=== PATIENT | female | born 1950 | race Hispanic/Latino ===

== ENCOUNTER 2018-03-07 06:41 | Day surgery (SDC) | payer MEDICARE, OTHER ==
[2018-02-26 09:39] VITALS: BMI 41.5
[2018-03-07] MEDS ORDERED: Sodium Chloride 0.9% 1,000 ML IV SCH (08:30)
[2018-03-07 08:47] VITALS: O2SAT 100
[2018-03-07 08:59] VITALS: PULSE 58
[2018-03-07 09:20] VITALS: BP 130/55; RESP 16; TEMP 98
== END 2018-03-07 09:34 | disposition home or self-care (01) ==
LOC: ENDO 06:41
PROVIDERS: ATTEND Specialist
DX: Z12.11 Encounter for screening for malignant neoplasm of colon (principal); D12.3 Benign neoplasm of transverse colon; K57.30 Diverticulosis of large intestine without perforation or abscess without bleeding; K64.8 Other hemorrhoids; K63.89 Other specified diseases of intestine; K52.9 Noninfective gastroenteritis and colitis, unspecified; J40 Bronchitis, not specified as acute or chronic; D51.0 Vitamin B12 deficiency anemia due to intrinsic factor deficiency; Z96.652 Presence of left artificial knee joint; Z86.010 Personal history of colon polyps
CPT/HCPCS: 45385; 88305; J7030